=== PATIENT | female | born 1950 | race American Indian/Alaskan Native ===

== ENCOUNTER 2016-11-27 06:44 | Inpatient (IN) | payer MEDICARE ==
[2016-11-25 10:27] LABS: Basophils % (Auto) 0.6 % (0.0-1.8); Eosinophils % (Auto) 1.8 % (0.0-4.3); Hematocrit 36.7 % (30.3-42.9); Hemoglobin 11.9 gm/dl (10.1-14.3); Mean Corpuscular HGB Conc 32 % (30-34); Mean Corpuscular Hemoglobin 29 pg (28-32); Mean Corpuscular Volume 89 fl (79-97); Platelet Count 247 K/mm3 (140-440); Red Blood Count 4.14 M/mm3 (3.65-5.03); Red Cell Distribution Width 14.5 % (13.2-15.2); White Blood Count 8.7 K/mm3 (4.5-11.0)
--- NOTE | 2016-11-25 10:55 | Anesthesia Consultation ---
Anesthesia Consult and Med Hx - Airway Anesthetic Teeth Evaluation: Good, Dentures (dentures on top) ROM Head & Neck: Inadequate (limited extension - pain in back of neck) Mallampati Class: Class II Intubation Access Assessment: Possibly Difficult - Pulmonary Exam CTA: Yes - Cardiac Exam Cardiac Exam: RRR (could hear small murmur) - Pre-Operative Health Status Proposed Anesthetic Plan: General (Patient has had many surgeries - carciac arrest with GA once; also given high doses of prednisone and had diabetes for two years , may give very small dose of decadron for nausea) - Pulmonary Hx Smoking: Yes (/ PPD X 30YRS) Hx Sleep Apnea: Yes (DX SLEEP APNEA WITH CPAP USE.) - Cardiovascular System Hx Hypertension: Yes (X 10 YRS) Hx Coronary Artery Disease: No (has aortic aneurysm with stent - medical clearance on chart) Hx Peripheral Vascular Disease: Yes - Central Nervous System Hx Neuromuscular Disorder: Yes (gout; ) Hx Back Pain: Yes (TO RIGHT SIDED WEAKNESS) - Endocrine Hx Insulin Dependent Diabetes: No Hx Non-Insulin Dependent Diabetes: Yes - Hematic Hx Anemia: Yes (B12 SHOTS EVERY MONTH) - Other Systems Hx Cancer: No Hx Obesity: Yes
[2016-11-25 10:56] LABS: Alanine Aminotransferase 11 units/L (7-56); Albumin/Globulin Ratio 1.3 %; Alkaline Phosphatase 43 units/L (35-129); Anion Gap 21 mmol/L; Blood Urea Nitrogen 17 mg/dL (7-17); Calcium 9.2 mg/dL (8.4-10.2); Carbon Dioxide 23 mmol/L (22-30); Chloride 97.8 mmol/L (98-107); Glucose 145 mg/dL (65-100); Potassium 3.6 mmol/L (3.6-5.0); Sodium 138 mmol/L (137-145); Total Protein 7.1 g/dL (6.3-8.2)
--- NOTE | 2016-11-26 15:42 | History and Physical Report ---
History of Present Illness Date of examination: 11/26/16 Date of admission: 11/27/16 Chief complaint: Low back pain, bilateral leg pain, aggravated by activities, improved with rest going on for last few years. Progressively worsening, MR scan month ago confirmed spinal stenosis L2-L5 with herniated disc multiple levels. Being admitted for decompression lumbar spine. Past History Past Medical History: other (gout) Past Surgical History: total knee replacement Medications and Allergies Allergies Allergy/AdvReac Type Severity Reaction Status Date / Time adhesive AdvReac Rash Verified 01/19/15 13:25 prednisone AdvReac STEROID Verified 11/25/16 10:20 INDUCED DIABETES Home Medications Medication Instructions Recorded Confirmed Last Taken Type Allopurinol [Zyloprim] 300 mg PO QDAY 11/25/16 11/25/16 Unknown History Aspirin [Adult Low Dose Aspirin EC] 81 mg PO DAILY 11/25/16 11/25/16 Unknown History Baclofen [Lioresal] 10 mg PO DAILY 11/25/16 11/25/16 Unknown History Cyanocobalamin [Vitamin B-12] 1,000 mcg IM QMONTH 11/25/16 11/25/16 Unknown History Esomeprazole Magnesium [NexIUM] 40 mg PO QDAY 11/25/16 11/25/16 Unknown History Fenofibrate [Lofibra] 160 mg PO QDAY 11/25/16 11/25/16 Unknown History HYDROcodone/APAP 5-325 [[place] 1 tab PO PRN PRN 11/25/16 11/25/16 Unknown History 5-325 mg TAB] Hydrochlorothiazide [HCTZ] 25 mg PO QDAY 11/25/16 11/25/16 Unknown History ISOSORBIDE MONOnitrate [Imdur ER] 120 mg PO QDAY 11/25/16 11/25/16 Unknown History Lisinopril [Zestril TAB] 40 mg PO QDAY 11/25/16 11/25/16 Unknown History Promethazine /Codeine 5 ml PO Q6H PRN 11/25/16 11/25/16 Unknown History [Phenergan/Codeine 6.25-10 mg/5Ml] Zolpidem [Ambien] 5 mg PO QHS PRN 11/25/16 11/25/16 Unknown History amLODIPine [Norvasc] 10 mg PO DAILY 11/25/16 11/25/16 Unknown History Active Meds: Active Medications Famotidine (Pepcid) 20 mg IV PREOP NR Stop: 11/27/16 23:59 Cefazolin Sodium (Ancef/Sterile Water 2 Gm/20 Ml) 2 gm in 20 mls @ 80 mls/hr IV PREOP NR PRN Reason: Protocol Stop: 11/27/16 23:00 Sodium Chloride (Nacl 0.9% 1000 Ml) 1,000 mls @ 100 mls/hr IV DIRECT AGATA Stop: 11/27/16 23:59 Midazolam HCl (Versed) 2 mg IV PREOP NR Stop: 11/27/16 07:01 Review of Systems All systems: negative Exam - Constitutional Vitals: Temp Pulse Resp BP Pulse Ox 97.8 F 80 20 124/70 11/25/16 10:00 11/25/16 10:00 11/25/16 10:00 11/25/16 10:00 General appearance: Present: no acute distress, well-nourished - EENT Eyes: Present: PERRL ENT: hearing intact, clear oral mucosa - Neck Neck: Present: supple, normal ROM - Respiratory Respiratory effort: normal Respiratory: bilateral: CTA - Cardiovascular Heart Sounds: Present: S1 & S2. Absent: rub, click - Extremities Extremities: pulses symmetrical, No edema Peripheral Pulses: within normal limits - Abdominal General gastrointestinal: Present: soft, non-tender, non-distended, normal bowel sounds Female genitourinary: Present: normal - Integumentary Integumentary: Present: clear, warm, dry - Musculoskeletal Musculoskeletal: other (Fairly built female with stiff gait, lumbar spine shows tenderness with reversal lordosis, limitation of movement by 20%. Straight-leg raising positive bilaterally at 70, Cuong test limited. Motor strength grade 5 in the lower extremity, symmetrical. No objective sensory deficits. Reflexes knee and ankle are diminished, grade 1.) - Psychiatric Psychiatric: appropriate mood/affect, intact judgment & insight - Neurologic Neurologic: CNII-XII intact, moves all extremities Results - Labs CBC & Chem 7: 11/25/16 10:00 11/25/16 10:00 Assessment and Plan - Patient Problems (1) Lumbar spondylosis with myelopathy Status: Chronic Plan to address problem: Lumbar decompression L2-L5, discectomy L2-3, L3-4, L5-S1?. Procedure, complications and outcomes including infection, dural injuries, DVT, spinal cord nerve injury resulting process and morbidity mortality discussed with. Posterior recovery rehabilitation course also discussed and all questions were answered. (2) Lumbar disc herniation with radiculopathy Status: Chronic
[~2016-11-27 06:44] MED LIST: ANCEF/STERILE WATER 2 GM/20 ML 2 GM/20 ML SYRINGE IV NR
[2016-11-27] MEDS ORDERED: VERSED IV NR ×2 (07:00→13:00)
[2016-11-27] MEDS ORDERED: NACL 0.9% 1000 ML 1,000 ML IV SCH (07:00)
[2016-11-27] MEDS ORDERED: PEPCID IV NR (07:00)
[2016-11-27] MEDS ORDERED: DIPRIVAN 10 MG/ML IV ONE (07:28)
[2016-11-27] MEDS ORDERED: DILAUDID ONE ×2 (07:28→11:56)
[2016-11-27] MEDS ORDERED: ZEMURON IV ONE (07:29)
[2016-11-27] MEDS ORDERED: QUELICIN ONE (07:29)
[2016-11-27] MEDS ORDERED: XYLOCAINE MPF 2% ONE (07:29)
[2016-11-27] MEDS ORDERED: NACL 0.9% 250ML 0 ML ONE (07:33)
[2016-11-27] MEDS ORDERED: MARCAINE 0.5% 0 ML INFILTRATI ONE (07:33)
[2016-11-27] MEDS ORDERED: GELFOAM TP ONE (07:33)
[2016-11-27] MEDS ORDERED: BACITRACIN ONE (07:34)
[2016-11-27] MEDS ORDERED: THROMBIN (BOVINE) TP ONE (07:34)
[2016-11-27] MEDS ORDERED: XYLOCAINE 0.5%/ EPI 1:200,000 INFILTRATI ONE (07:35)
[2016-11-27] MEDS ORDERED: NACL ONE (07:37)
[2016-11-27] MEDS ORDERED: DEPO-MEDROL ONE (07:37)
[2016-11-27] MEDS ORDERED: DILAUDID IV ONE (08:00)
--- NOTE | 2016-11-27 08:16 | Anesthesia Day of Surgery ---
Anesthesia Day of Surgery - Day of Surgery Patient Examined: Yes Patient H&P Reviewed: Yes Patient is NPO: Yes Cardiac Clearance: No (medical clearance on chart)
[2016-11-27] MEDS ORDERED: AMIDATE IV ONE (08:29)
[2016-11-27] MEDS ORDERED: ACD-A IV ONE (09:15)
[2016-11-27] MEDS ORDERED: NACL 0.9% 1000 ML 1,000 ML ONE ×5 (09:25→14:37)
[2016-11-27] MEDS ORDERED: NACL 0.9% IR ONE (09:43)
[2016-11-27] MEDS ORDERED: ePHEDrine SULFATE ONE ×2 (09:49→12:16)
[2016-11-27] MEDS ORDERED: TORADOL ONE ×2 (10:27→12:39)
[2016-11-27] MEDS ORDERED: MARCAINE-EPI/PF 0.5%-1:200,000 INFILTRATI ONE ×2 (10:27→10:33)
[2016-11-27] MEDS ORDERED: MORPHINE ONE (10:27)
[2016-11-27] MEDS ORDERED: MORPHINE IM ONE (10:34)
[2016-11-27] MEDS ORDERED: TORADOL IV ONE (10:34)
[2016-11-27] MEDS ORDERED: NACL 0.9% 100 ML ONE (10:35)
[2016-11-27] MEDS ORDERED: NEO SYNEPHRINE ONE (10:35)
[2016-11-27] MEDS ORDERED: ZOFRAN ONE (10:40)
[2016-11-27] MEDS ORDERED: NEOSTIGMINE ONE (10:42)
[2016-11-27] MEDS ORDERED: ROBINUL ONE (10:42)
--- NOTE | 2016-11-27 10:53 | Procedure Note ---
Date of procedure: 11/27/16 Pre-op diagnosis: Lumbar stonosis, L2-L5 Post-op diagnosis: same Procedure: Decompressive laminectomy, l2_L5, Bolateral foraminotomies L2-L5 Anesthesia: GETA Surgeon: PARISH HUERTA Estimated blood loss: other (225ml/ 125 mkl pc to pt using cell saver) Pathology: list Specimen disposition: to lab Condition: stable Disposition: PACU
[2016-11-27] MEDS: DILAUDID IV PRN ×2 (11:51→12:05)
[2016-11-27] MEDS ORDERED: TORADOL IV PRN ×2 (12:07→16:45)
[2016-11-27] MEDS ORDERED: VERSED ONE (12:49)
--- NOTE | 2016-11-27 13:10 | Admit Criteria Form ---
Admission Criteria Documentation: AMBULATORY SURGERY EXCEPTION CRITERIA Ambulatory Surgery Exception Criteria ( Place 'X' for any and all applicable criteria): Surgery or procedure performed on ambulatory basis may require inpatient stay for[A] ANY ONE of the following(1)(2)(3)(4)(5)(6)(7)(8)(9): [X] I. A preoperative situation, condition, or finding that warrants inpatient stay as indicated by ANY ONE of the following: [] a) Inpatient care needed because of severity of a disease or condition rather than the surgery (eg, severe cardiac or respiratory disease, severe infection) (15) (16 ) (17) (18) [] b) Emergent procedure (eg, angioplasty for acute ischemia)(19) [] c) Complex surgical approach or situation as indicated by ANY ONE of the following(3): [] i) Open approach needed instead of usual endoscopic, transcatheter, or other less invasive procedure [] ii) Difficult approach because of previous operation [] iii) Airway monitoring required after open neck procedures(20)(21) [] iv) Large mass requiring unusually extensive dissection [] v) Additional complicating feature requiring inpatient care (eg, drain management)(22(23): [X] d) Major surgery in a pt with high anesthetic risk as indicated by ANY ONE of the following (2)(3)(5)(7)(8): [X] i) ASA risk class III or higher (severe systemic disease impairing function) [D] [] ii) Advanced age (eg, older than 85 years)(14)(24) [] iii) Symptomatic heart failure(25) [] iv) Symptomatic asthma or COPD(8)(21) [] v) Morbid obesity with hemodynamic or respiratory problems(20)( 21)(26)(27) [] vi) Obstructive sleep apnea(20)(21) [] vii) Former premature infants who are younger than 60 weeks [] viii) High risk for severe postoperative abnormalities (eg, severe postoperative hypocalcemia after parathyroidectomy for severe hyperparathyroidism)(27)( 28) [] ix) Unstable angina(25) [] e) Drug-related risk requiring inpatient stay as indicated by ANY ONE of the following(5)(10)(14)(32)(33) [] i) Procedure requires discontinuing drugs or other therapy (eg , antiarrhythmic medication, antiseizure medication), which necessitates inpatient observation or treatment.(18)(31) [] ii) Major surgery and high risk drug use as indicated by ANY ONE of the following: [] 1) Active abuse of cocaine or similar drug [] 2) Monoamine oxidase inhibitor use [] 3) Other drug identified as posing risk [] f) Inadequate outpatient care situation as indicated by ANY ONE of the following(5)(10)(14)(32)(33) [] i) Patient lives remote from medical facility and procedure has urgent complication potential, and temporary nearby residence cannot be arranged [] ii) Patient will have postprocedure incapacitation and inadequate assistance at home, or alternative level of care cannot be arranged. [] iii) Patient will have long general anesthesia or procedure side effect resolution time, and competent person to stay with patient on first postoperative night at home or alternative level of care cannot be arranged. []iv) Other inadequate outpatient situation that cannot be handled by other means [] II. A perioperative event, condition, or finding that warrants inpatient stay as indicated by ANY ONE of the following (1)(2)(3): [] a) Inadequate physiologic recovery: cardiovascular, respiratory, or hemodynamic status not normal or near preoperative baseline(18) [] b) Hemodynamic instability [] c) Patient not alert with near normal or baseline mental status [] d) Temperature not normal or as expected and not appropriate for outpatient treatment of condition [] e) Ambulatory or appropriate activity level status not yet achieved post procedure [E](34)(35)(36) [] f) Operative site not appropriate (eg, unexpected or excessive drainage or bleeding) [] g) Postoperative effects not resolved or adequately managed (eg, significant pain or vomiting not appropriate for outpatient or next level of care)(10)(12) [] h) Complicating features requiring inpatient care as indicated by ANY ONE of the following(37): [] i) Severe complications of procedure (eg, bowel injury, airway compromise, vascular injury,severe hemorrhage) [] ii) Extensive (eg, dissection far beyond usual scope of procedure ) or prolonged (eg, 120 minutes beyond usual) surgery needed requiring inpatient postoperative care [] iii) Conversion to an open or complex procedure that requires inpatient care (eg, open vs laparoscopic cholecystectomy, abdominal vs vaginal hysterectomy)(38) [] iv) Comorbid condition or test result identified during or post procedure that requires inpatient care (7) [] v) Malignant hyperthermia(30) [] vi) Other complicating feature requiring inpatient care(22)(23) Inpatient stay may be needed until ALL of the following are present (1)(2)(3)(4) (5)(6)(10)(14)(33)(40): []a) Physiologic recovery: cardiovascular, respiratory, and hemodynamic status normal or near preoperative baseline []b) Hemodynamic stability []c) Patient alert, with near normal or baseline mental status []d) Temperature appropriate: patient afebrile or temperature appropriate for outpt treatment of condition []e) Activity level appropriate: ambulatory or appropriate activity level post procedure []f) Operative site appropriate as indicated by ALL of the following: []i) Site dry or with expected drainage []ii) Any blood noted is as expected for procedure. []g) Postoperative effects resolved or managed as indicated by ALL of the following: []i) Pain management appropriate for outpatient (or next level of) care(10) []ii) Minimal nausea and vomiting: if present, successfully treated with oral medication(12) []iii) Headache, dizziness, or drowsiness (if present) are mild. []h) Voiding status acceptable as indicated by ANY ONE of the following: []i) Voiding spontaneously []ii) No voiding but instructions given for follow-up in 6 to 8 hours []iii) Urinary catheter in place, and instructions given for follow-up []i) Complicating features requiring inpatient care manageable at a lower level of care(37) []j) Comorbid conditions manageable at a lower level of care(37) The original [employer] content created by [employer] has been revised. The portions of the content which have been revised are identified through the use of italic text or in bold, and [facility] has neither reviewed nor approved the modified material. All other unmodified content is copyright [employer]. Please see references footnoted in the original [employer] edition 2016 Admission Criteria Met: Yes
--- NOTE | 2016-11-27 13:31 | Post Anesthesia Evaluation ---
- Post Anesthesia Evaluation Patient Participated: Yes Airway Patent: Yes Stable Respiratory Function: Yes Nausea/Vomiting: No Temp > 96.8F: Yes Pain Manageable: Yes Adequeate Hydration: Yes Anesthesia Complications: No
[2016-11-27 13:56] LABS: Hematocrit 30.6 % (30.3-42.9); Hemoglobin 9.7 gm/dl (10.1-14.3)
[2016-11-27] MEDS ORDERED: ALBURX 25% (ALBUMIN) IV ONE (14:30)
[2016-11-27] MEDS ORDERED: FLEXERIL PO PRN (16:45)
[2016-11-27] MEDS ORDERED: ZOFRAN IV PRN (16:45)
[2016-11-27] MEDS ORDERED: MILK OF MAGNESIA PO PRN (16:45)
[2016-11-27] MEDS ORDERED: NORCO 5/325 PO PRN (16:45)
[2016-11-27] MEDS ORDERED: BENADRYL PO PRN (16:45)
[2016-11-27] MEDS ORDERED: TYLENOL PO PRN (16:45)
[2016-11-27] MEDS ORDERED: AMBIEN PO PRN (16:45)
[2016-11-27] MEDS: MORPHINE IV PRN (17:56)
[2016-11-27] MEDS: ANCEF/NS 1 GM/50 ML 1 GM/50 ML BAG IV SCH (17:57)
--- NOTE | 2016-11-27 19:56 | Consultation ---
History of Present Illness - Reason for Consult Consult date: 11/27/16 management of medical conditions - History of Present Illness 64-year-old -Citizen Of [place] female is status post decompressive laminectomy L2 to L5 and a medical consult was requested. Patient is awake alert and oriented. She complains of pain at the operated site and she says it's 10 out of 10 on the pain scale. She also complains of mild numbness in the right leg but denies any weakness. She denies any fever or chills sore throat dysphagia nasal congestion or headaches Denies any chest pain or shortness of breath or palpitations or syncope She denies any cough or congestion Denies dysuria or urinary incontinence She has history of chronic back pain She is a smoker Past History Past Medical History: CAD, diabetes, hypertension, other (gout, history of descending aortic aneurysm status post stent placement) Past Surgical History: total knee replacement Medications and Allergies Allergies Allergy/AdvReac Type Severity Reaction Status Date / Time adhesive AdvReac Rash Verified 01/19/15 13:25 prednisone AdvReac STEROID Verified 11/25/16 10:20 INDUCED DIABETES Home Medications Medication Instructions Recorded Confirmed Last Taken Type Allopurinol [Zyloprim] 300 mg PO QDAY 11/25/16 11/25/16 11/27/16 05:00 History Aspirin [Adult Low Dose Aspirin EC] 81 mg PO DAILY 11/25/16 11/27/16 1 Week Ago History Baclofen [Lioresal] 10 mg PO DAILY 11/25/16 11/25/16 11/26/16 History Cyanocobalamin [Vitamin B-12] 1,000 mcg IM QMONTH 11/25/16 11/25/16 11/26/16 History Esomeprazole Magnesium [NexIUM] 40 mg PO QDAY 11/25/16 11/25/16 11/27/16 05:00 History Fenofibrate [Lofibra] 160 mg PO QDAY 11/25/16 11/25/16 11/26/16 History HYDROcodone/APAP 5-325 [[place] 1 tab PO PRN PRN 11/25/16 11/25/16 11/26/16 History 5-325 mg TAB] Hydrochlorothiazide [HCTZ] 25 mg PO QDAY 11/25/16 11/25/16 11/27/16 05:00 History ISOSORBIDE MONOnitrate [Imdur ER] 120 mg PO QDAY 11/25/16 11/25/16 11/27/16 05: 00 History Lisinopril [Zestril TAB] 40 mg PO QDAY 11/25/16 11/25/16 11/27/16 05:00 History Promethazine /Codeine 5 ml PO Q6H PRN 11/25/16 11/25/16 11/26/16 History [Phenergan/Codeine 6.25-10 mg/5Ml] Zolpidem [Ambien] 5 mg PO QHS PRN 11/25/16 11/25/16 11/26/16 History amLODIPine [Norvasc] 10 mg PO DAILY 11/25/16 11/25/16 11/27/16 05:00 History Active Meds: Active Medications Acetaminophen (Tylenol) 650 mg PO Q6H PRN PRN Reason: Pain MILD(1-3)/Fever> 100.5/TOBAR Acetaminophen/Hydrocodone Bitart ([place] 5/325) 1 each PO Q6H PRN PRN Reason: Pain, Moderate (4-6) Cyclobenzaprine HCl (Flexeril) 10 mg PO Q8H PRN PRN Reason: Muscle Spasm Diphenhydramine HCl (Benadryl) 25 mg PO Q6H PRN PRN Reason: Itching Docusate Sodium (Colace) 100 mg PO BID AGATA Famotidine (Pepcid) 20 mg PO BID [facility] Sodium Chloride (Nacl 0.9% 1000 Ml) 1,000 mls @ 100 mls/hr IV DIRECT AGATA Stop: 11/27/16 23:59 Last Admin: 11/27/16 08:00 Dose: 100 mls/hr Cefazolin Sodium (Ancef/Ns 1 Gm/50 Ml) 1 gm in 50 mls @ 100 mls/hr IV Q8H AGATA Stop: 11/28/16 02:29 Last Admin: 11/27/16 17:57 Dose: 100 mls/hr Ketorolac Tromethamine (Toradol) 30 mg IV Q6H PRN PRN Reason: Pain, Mild (1-3) Stop: 12/02/16 16:44 Magnesium Hydroxide (Milk Of Magnesia) 30 ml PO Q4H PRN PRN Reason: Constipation Morphine Sulfate (Morphine) 4 mg IV Q4H PRN PRN Reason: Pain , Severe (7-10) Last Admin: 11/27/16 17:56 Dose: 4 mg Ondansetron HCl (Zofran) 4 mg IV Q8H PRN PRN Reason: Nausea And Vomiting Zolpidem Tartrate (Ambien) 5 mg PO QHS PRN PRN Reason: Sleep Review of Systems All systems: negative (12 point review of systems is negative except as stated above in the history of present illness) Exam - Constitutional Vitals: Temp Pulse Resp BP Pulse Ox 97.9 F 70 12 92/40 99 11/27/16 11:20 11/27/16 12:00 11/27/16 13:04 11/27/16 12:00 11/27/16 12:00 General appearance: Present: no acute distress, obese - EENT Eyes: Present: PERRL, EOM intact ENT: hearing intact, clear oral mucosa, no thrush - Neck Neck: Present: supple, normal ROM. Absent: masses or JVD, carotid bruits - Respiratory Respiratory effort: normal Respiratory: bilateral: CTA - Cardiovascular Rhythm: regular Heart Sounds: Present: S1 & S2 - Extremities Extremities: No edema - Abdominal General gastrointestinal: Present: soft, non-tender. Absent: hepatomegaly, splenomegaly - Rectal Rectal Exam: deferred - Integumentary Integumentary: Present: clear - Musculoskeletal Musculoskeletal: strength equal bilaterally - Psychiatric Psychiatric: appropriate mood/affect - Neurologic Neurologic: no focal deficits, moves all extremities Results - Labs CBC & Chem 7: 11/27/16 13:30 11/25/16 10:00 Labs: Abnormal lab results 11/27/16 Range/Units 13:30 Hgb 9.7 L (10.1-14.3) gm/dl Assessment and Plan - Patient Problems (1) Type 2 diabetes mellitus Current Visit: Yes Status: Chronic Qualifiers: Diabetes mellitus complication status: without complication Diabetes mellitus complication detail: D Diabetic retinopathy severity: D Proliferative retinopathy type: P Diabetes mellitus macular edema: D Diabetes mellitus long term care phlebotomist insulin use: without mcc use Laterality: L Chronic kidney disease stage: C Qualified Code(s): E11.9 - Type 2 diabetes mellitus without complications Plan to address problem: We will start the patient on insulin sliding scale (2) Normocytic anemia Current Visit: Yes Status: Acute Plan to address problem: Most likely multifactorial including postoperative blood loss and intravenous fluids. There is no overt bleeding We'll monitor hemoglobin and hematocrit (3) Hypertension Current Visit: Yes Status: Chronic Qualifiers: Hypertension type: H Plan to address problem: Patient is not on any antihypertensives and her blood pressure is still borderline low normal We'll monitor blood pressure closely (4) Lumbar disc herniation with radiculopathy Current Visit: Yes Status: Chronic Plan to address problem: Status post L2 to L5 decompressive laminectomy Thank you Dr. Ritter we will follow the patient with you
[2016-11-27] MEDS: PEPCID PO SCH (22:18)
[2016-11-28] MEDS: ANCEF/NS 1 GM/50 ML 1 GM/50 ML BAG IV SCH (02:45)
[2016-11-28] MEDS: COLACE PO SCH ×2 (02:46→10:05)
[2016-11-28 04:45] LABS: Hematocrit 30.6 % (30.3-42.9); Hemoglobin 10.2 gm/dl (10.1-14.3)
[2016-11-28 05:05] LABS: Anion Gap 18 mmol/L; Blood Urea Nitrogen 12 mg/dL (7-17); Calcium 7.7 mg/dL (8.4-10.2); Carbon Dioxide 25 mmol/L (22-30); Chloride 104.9 mmol/L (98-107); Glucose 153 mg/dL (65-100); Potassium 3.9 mmol/L (3.6-5.0); Sodium 144 mmol/L (137-145)
--- NOTE | 2016-11-28 07:25 | XRay Report ---
LUMBOSACRAL SPINE, 2 VIEWS History: Lumbar myelopathy. Findings: PA and lateral fluoroscopic images of the lumbar spine were obtained during surgery. Lumbar laminectomy was performed by Dr. Ritter. The bony structures appear demineralized with mild diffuse degenerative change. No acute fracture or malalignment is appreciated. Aortobiiliac stent is noted. Impression: Lumbar spondylosis.
[2016-11-28] MEDS: MORPHINE IV PRN (08:41)
--- NOTE | 2016-11-28 08:45 | Progress Note ---
Assessment and Plan Assessment and plan: Patient is a 64-year-old -[place] female with past medical history of hypertension, gout, diabetes mellitus who presented with significant radiculopathy of the lower extremities and had a decompressive laminectomy L2 to L5 and a medical consult was requested. On examination yesterday there was mild complaining of right lower ext numbness. * Abdominal pain/with urinary urgency -rule out UTI. Will send urine culture and urinalysis. If positive will start patient on empiric antibiotic coverage. Patient also be discharged on oral antibiotics longer she is afebrile. * Febrile illness -transient * Elevated blood Gluose-monitor with Accu-Cheks will discuss with patient about diabetes status. * HTN-, multiple blood pressure medication but blood pressure remained stable without his medication being started. We'll start the lisinopril * Lumber Disc Herniation with radiculopathy-status post L2 to L5 decompressive left pneumonectomy. We'll reassess lower extremity numbness today. * Gout-restart the Allupourinol * Precipitated his as as drop in hemoglobin- Monitor. * DVT/GI prophy * Thank you Dr. Ritter we will follow the patient with you History Interval history: Patient seen and examined in no acute distress. She reports some abdominal pain with mild burning urination. Review of her data show a fever this afternoon wasn't present in the morning. Denies any paresthesias, nausea vomiting or diarrhea. She denies any urinary or fecal incontinence. Hospitalist Physical - Physical exam Narrative exam: VITAL SIGNS: Reviewed. GENERAL: The patient appeared well nourished and normally developed. Vital signs as documented. HEAD: No signs of head trauma. EYES: Pupils are equal. Extraocular motions intact. EARS: Hearing grossly intact. MOUTH: Oropharynx is normal. NECK: No adenopathy, no JVD. CHEST: Chest with clear breath sounds bilaterally. No wheezes, rales, or rhonchi. CARDIAC: Regular rate and rhythm. S1 and S2, without murmurs, gallops, or rubs. VASCULAR: No Edema. Peripheral pulses normal and equal in all extremities. ABDOMEN: Soft, without detectable tenderness. No sign of distention. No rebound or guarding, and no masses palpated. Bowel Sounds normal. MUSCULOSKELETAL: Good range of motion of all major joints. Extremities without clubbing, cyanosis or edema. NEUROLOGIC EXAM: Alert and oriented x 3. No focal sensory or strength deficits. Speech normal. Follows commands. PSYCHIATRIC: Mood normal. SKIN: No rash or lesions. - Constitutional Vitals: Temp Pulse Resp BP Pulse Ox 99.9 F H 94 H 18 127/63 98 11/28/16 07:59 11/28/16 07:59 11/28/16 07:59 11/28/16 07:59 11/28/16 07:59 General appearance: Present: no acute distress, obese Results - Labs CBC & Chem 7: 11/28/16 04:14 11/28/16 04:14 Labs: Laboratory Last Values WBC 8.7 K/mm3 (4.5-11.0) 11/25/16 10:00 RBC 4.14 M/mm3 (3.65-5.03) 11/25/16 10:00 Hgb 10.2 gm/dl (10.1-14.3) 11/28/16 04:14 Hct 30.6 % (30.3-42.9) 11/28/16 04:14 MCV 89 fl (79-97) 11/25/16 10:00 MCH 29 pg (28-32) 11/25/16 10:00 MCHC 32 % (30-34) 11/25/16 10:00 RDW 14.5 % (13.2-15.2) 11/25/16 10:00 Plt Count 247 K/mm3 (140-440) 11/25/16 10:00 Lymph % (Auto) 42.4 % (13.4-35.0) H 11/25/16 10:00 [place] % (Auto) 9.0 % (0.0-7.3) H 11/25/16 10:00 Eos % (Auto) 1.8 % (0.0-4.3) 11/25/16 10:00 Baso % (Auto) 0.6 % (0.0-1.8) 11/25/16 10:00 Lymph # 3.7 K/mm3 (1.2-5.4) 11/25/16 10:00 [place] # 0.8 K/mm3 (0.0-0.8) 11/25/16 10:00 Eos # 0.2 K/mm3 (0.0-0.4) 11/25/16 10:00 Baso # 0.1 K/mm3 (0.0-0.1) 11/25/16 10:00 Seg Neutrophils % 46.2 % (40.0-70.0) 11/25/16 10:00 Seg Neutrophils # 4.0 K/mm3 (1.8-7.7) 11/25/16 10:00 Sodium 144 mmol/L (137-145) 11/28/16 04:14 Potassium 3.9 mmol/L (3.6-5.0) 11/28/16 04:14 Chloride 104.9 mmol/L (98-107) 11/28/16 04:14 Carbon Dioxide 25 mmol/L (22-30) 11/28/16 04:14 Anion Gap 18 mmol/L 11/28/16 04:14 BUN 12 mg/dL (7-17) 11/28/16 04:14 Creatinine 1.0 mg/dL (0.7-1.2) 11/28/16 04:14 Estimated GFR > 60 ml/min 11/28/16 04:14 BUN/Creatinine Ratio 12.00 % 11/28/16 04:14 Glucose 153 mg/dL (65-100) H 11/28/16 04:14 POC Glucose 165 (70-105) H 11/28/16 07:30 Calcium 7.7 mg/dL (8.4-10.2) L D 11/28/16 04:14 Total Bilirubin 0.30 mg/dL (0.1-1.2) 11/25/16 10:00 AST 12 units/L (5-40) 11/25/16 10:00 ALT 11 units/L (7-56) 11/25/16 10:00 Alkaline Phosphatase 43 units/L (35-129) 11/25/16 10:00 Total Protein 7.1 g/dL (6.3-8.2) 11/25/16 10:00 Albumin 4.0 g/dL (3.9-5) 11/25/16 10:00 Albumin/Globulin Ratio 1.3 % 11/25/16 10:00 Blood Type A POSITIVE 11/27/16 08:00 Antibody Screen TNR 11/27/16 08:00 OTONIEL Antibody Screen Negative 11/27/16 08:00
[2016-11-28] MEDS ORDERED: ZESTRIL PO SCH (10:00)
[2016-11-28] MEDS ORDERED: ZYLOPRIM PO SCH (10:00)
[2016-11-28] MEDS: PEPCID PO SCH (10:05)
[2016-11-28 15:23] VITALS: BP 129/73
--- NOTE | 2016-11-28 15:24 | Progress Note ---
Assessment and Plan - Patient Problems (1) Lumbar spondylosis with myelopathy Status: Chronic Plan to address problem: Continue with progressive ambition, may need a walker, will discharge to home. Home care discussed with. 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 Out of bed. Objective Vital signs: Vital Signs - 12hr 11/28/16 11/28/16 11/28/16 06:10 07:59 10:05 Temperature 98.9 F 99.9 F H Pulse Rate 94 H Pulse Rate [ 89 94 H Brachial] Respiratory 18 18 Rate Blood Pressure 127/63 Blood Pressure 149/80 127/63 [Left Arm] O2 Sat by Pulse 97 98 Oximetry 11/28/16 11/28/16 11:00 15:00 Temperature 101 F H 99.6 F Pulse Rate Pulse Rate [ 66 87 Brachial] Respiratory 20 18 Rate Blood Pressure Blood Pressure 124/70 129/73 [Left Arm] O2 Sat by Pulse Oximetry - Labs CBC & BMP: 11/28/16 04:14 11/28/16 04:14 Labs: Abnormal lab results 11/28/16 11/28/16 11/28/16 Range/Units 04:14 05:43 07:30 Glucose 153 H (65-100) mg/dL POC Glucose 177 H 165 H (70-105) Calcium 7.7 L D (8.4-10.2) mg/dL 11/28/16 Range/Units 11:22 Glucose (65-100) mg/dL POC Glucose 135 H (70-105) Calcium (8.4-10.2) mg/dL
--- NOTE | 2016-11-28 15:24 | Discharge Summary ---
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 Kenyon COWAN Phone number called:: [phone] Was contact made?: Yes If yes, spoke with:: DR. COWAN Time called:: 17:46 Comment:: CONSULT COMPLETED - [facility] Physical Therapy Evaluation and Treat [CONS] Routine Comment: Reason For Exam: post op Primary care physician: IVANA DAVIS Hospitalization Reason for admission: lumbar spondylosis, lumbar spinal stenosis with herniated disc L3-L5 Condition: Good Procedures: decompressive lumbar laminectomy L3-L5, bilateral foraminotomies L3-L5. Hospital course: uneventful, no complications. 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 Core Measure Documentation - Palliative Care Palliative Care/ Comfort Measures: Not Applicable - Core Measures Any of the following diagnoses?: none Exam - Constitutional Vitals: Temp Pulse Resp BP Pulse Ox 99.6 F 87 18 129/73 98 11/28/16 15:00 11/28/16 15:00 11/28/16 15:00 11/28/16 15:00 11/28/16 07:59 Plan Activity: no driving until cleared by PCP, fall precautions Weight Bearing Status: Full Weight Bearing Diet: regular Wound: per your surgeon's advice Durable Medical Equipment Needed Upon Discharge: Walker-Standard Follow up with: IVANA DAVIS ANP [Primary Care Provider] - 7 Days PARISH HUERTA MD [Staff Physician] - 7 Days Prescriptions: Cyclobenzaprine [Flexeril] 10 mg PO TID PRN #30 tablet PRN Reason: Muscle Spasm Ibuprofen [Motrin] 1 tab-cap PO Q8H #90
--- NOTE | 2016-11-29 10:27 | Operative Report ---
Operative Report Operative Report: Preoperative diagnosis Lumbar spondylosis, lumbar spinal stenosis with herniation of disc, L2-L5. Postop diagnosis Same Operative procedure Decompressive lumbar laminectomy with bilateral foraminotomies, L2-L5. Surgeon Dr. NAZANIN Bingham Anesthesia General Blood loss approximately 225 cc, 125 cc packed cell to patient using Cell Saver system. Procedure The patient was taken to the surgery suite, satisfactory analgesia pain with general anesthetics, positioned on the [place] frame. The patient, procedures are confirmed. Midline incision was made centering over L4, incision was deepened through the lumbar fascia and longus colli was elevated subperiosteally. Lateral fluoroscopy was carried out and the lumbar spaces were confirmed.(L4-L5 being the second disc space from the sacrum,) there was severe hypertrophic changes over the facet joint and posterior elements at L5. The ligamentum flavum structures were elevated from the lamina of L5, and a cotton paddy was inserted to the epidural space to protect the dura and the laminectomy was carried out by excising the lamina of L5 to the facet joints. The compression was then continued proximally to L2-3 level, thereby decompressing the thecal sac from L L3-5. The posterior osteophytes at L L4-L5 bilaterally were identified and was debrided thereby becomes the nerve root at this level. Some degree of bleeding was noticed at L3 and L4 levels, decompression appeared satisfactory. Partial facetectomy was carried out bilaterally at all 3 levels and neural foramina were explored. The foramina appeared patent with no obvious stenosis following decompression. Hemostasis appeared satisfactory. Wound was irrigated, covered with Gelfoam, and longus colli and the fascia was injected with 20 cc of 0.5% Marcaine, morphine 3 mg and Toradol 30 mg for postop pain control. Wound was closed in layers in the standard fashion using 0 Vicryl, 2-0 Vicryl and zina. Sterile dressings are applied, was transferred to recovery room in satisfactory condition. Tolerated procedure well. At the completion of procedure the counts were accurate, total blood loss 225 ml approximate, 125 cc packed cells to the patient with Cell Saver.
[2016-12-07] MEDS ORDERED: VITAMIN B-12 IM SCH (10:00)
== END 2016-11-28 17:15 | disposition home health service (06) | DRG 519 ==
LOC: OR 06:44 → 3A 08:17 → 2B-SURG 12:29
PROVIDERS: ADMIT Orthopaedic Surgery; ATTEND Orthopaedic Surgery
PROC: 00NY0ZZ Release Lumbar Spinal Cord, Open Approach (ICD-10-PCS; principal; 2016-11-27)
DX: M51.16 Intervertebral disc disorders with radiculopathy, lumbar region (principal); M47.16 Other spondylosis with myelopathy, lumbar region; M10.9 Gout, unspecified; I25.10 Atherosclerotic heart disease of native coronary artery without angina pectoris; E11.9 Type 2 diabetes mellitus without complications; Z96.659 Presence of unspecified artificial knee joint; Z88.8 Allergy status to other drugs, medicaments and biological substances; Z91.048 Other nonmedicinal substance allergy status
CPT/HCPCS: 36415; 72100; 80048; 80053; 82140; 82962; 85014; 85018; 85025; 86850; 86900; 86901; 87040; 88304; A4649; J0330; J0690; J1030; J1170; J1885; J2250; J2270; J2370; J2405; J2704; J2710; J7030; J7050; P9047